=== PATIENT | female | born 1950 | race Caucasian/White ===

== ENCOUNTER 2018-06-28 06:00 | Day surgery (SDC) | payer OTHER | END 2018-06-28 09:20 | disposition home or self-care (01) | LOC: AMB-ENDOS 06:00 | DX: D12.0 Benign neoplasm of cecum (principal); Z86.010 Personal history of colon polyps ==

== ENCOUNTER 2022-01-24 08:23 | Outpatient (CLI) | payer OTHER | END 2022-01-24 08:28 | disposition home or self-care (01) | LOC: RX STUDY 08:23 | PROVIDERS: ATTEND Internal Medicine Gastroenterology | DX: R13.0 Aphagia (principal); R10.13 Epigastric pain ==